=== PATIENT | female | born 1985 | race Caucasian/White ===

== ENCOUNTER → 2018-11-25 | Outpatient (CLI) | payer OTHER ==
[~2018-11-25] MED LIST: OMEP20ER PO
== END | disposition home or self-care (01) ==
LOC: LAB EV 09:36 → LAB SHORT 09:36
DX: N39.0 Urinary tract infection, site not specified (principal)
CPT/HCPCS: 87077; 87086; 87186

== ENCOUNTER 2020-02-01 22:48 | Emergency (ER) | payer OTHER ==
[~2020-02-01] VITALS: Ht 152.4 cm; Wt 72.6 kg
[2020-02-01 23:05] LABS: Source, Urine Clean Catch
[2020-02-01 23:16] LABS: Appearance, Urine Cloudy (Clear); Blood, Urine 5+ (Neg); Glucose Qualitative, Urine Neg (Neg); Ketones, Urine 2+ (Neg); Leukocyte Esterase, Urine 3+ (Neg); Nitrite, Urine Pos (Neg); Protein, Urine 3+ (Neg); Urobilinogen, Urine 2+ (Normal)
[2020-02-01] MEDS ORDERED: ESOMEPRAZOLE MA20 MG (23:18)
[2020-02-01 23:19] LABS: Bilirubin, Urine 2+ (Neg); Color, Urine Orange (P-Yellow)
[2020-02-01 23:28] LABS: Bacteria Many /hpf; Red Blood Cells, Urine TNTC /hpf (0-2); Squamous Epithelial Cells Few /hpf (Few); White Blood Cells, Urine TNTC /hpf (0-5)
[2020-02-01] MEDS ORDERED: CEPH500 PO (23:30)
[2020-02-01] MEDS ORDERED: Pyridium100 MG PO (23:30)
== END 2020-02-01 23:47 | disposition home or self-care (01) ==
LOC: ER 22:48
PROVIDERS: Physician Assistant
DX: N30.90 Cystitis, unspecified without hematuria (principal); Z79.899 Other long term (current) drug therapy
CPT/HCPCS: 81001; 87077; 87086; 87186; 99283; A9270-GY

== ENCOUNTER → 2020-02-10 | Outpatient (CLI) | payer OTHER ==
[~2020-02-10] MED LIST changes: +CEPH500 PO; +ESOMEPRAZOLE MA20 MG; +Pyridium100 MG PO
[2020-02-10 17:02] LABS: Source, Urine Clean Catch
[2020-02-10 19:16] LABS: Bilirubin, Urine Neg (Neg); Blood, Urine Neg (Neg); Glucose Qualitative, Urine Neg (Neg); Ketones, Urine Neg (Neg); Leukocyte Esterase, Urine Neg (Neg); Nitrite, Urine Neg (Neg); Protein, Urine Neg (Neg); Specific Gravity, Urine 1.005 (1.003-1.022); Urobilinogen, Urine NORM (Normal); pH, Urine 6.5 (5.0-8.0)
[2020-02-10 19:22] LABS: Appearance, Urine Clear (Clear); Color, Urine Pale Yellow (P-Yellow)
== END | disposition home or self-care (01) ==
LOC: LAB 17:00 → LAB SHORT 17:00
PROVIDERS: Internal Medicine
DX: R30.0 Dysuria (principal)
CPT/HCPCS: 81003

== ENCOUNTER 2020-03-24 00:23 | Emergency (ER) | payer OTHER ==
[~2020-03-24] VITALS: Ht 167.6 cm; Wt 68.0 kg
[2020-03-24 00:54] LABS: Source, Urine Clean Catch
[2020-03-24 01:01] LABS: Bilirubin, Urine Neg (Neg); Blood, Urine 5+ (Neg); Glucose Qualitative, Urine Neg (Neg); Ketones, Urine 1+ (Neg); Leukocyte Esterase, Urine 3+ (Neg); Nitrite, Urine Neg (Neg); Protein, Urine 2+ (Neg); Urobilinogen, Urine NORM (Normal)
[2020-03-24] MEDS ORDERED: Lexapro5 MG PO (01:01)
[2020-03-24] MEDS ORDERED: ESOM20 PO (01:01)
[2020-03-24 01:02] LABS: Appearance, Urine Hazy (Clear); Color, Urine Yellow (P-Yellow)
[2020-03-24 01:07] LABS: Bacteria Few /hpf; Red Blood Cells, Urine TNTC /hpf (0-2); Squamous Epithelial Cells Few /hpf (Few)
[2020-03-24] MEDS ORDERED: CEFP200 PO (01:31)
== END 2020-03-24 01:50 | disposition home or self-care (01) ==
LOC: ER 00:23
PROVIDERS: Emergency Medicine
DX: N39.0 Urinary tract infection, site not specified (principal); Z79.899 Other long term (current) drug therapy
CPT/HCPCS: 81001; 81025; 87077; 87086; 87186; 96372; 99283-25; A9270-GY; J1885

== ENCOUNTER → 2020-03-31 | Outpatient (CLI) | payer OTHER ==
[~2020-03-31] MED LIST changes: +CEFP200 PO; +DOCU100 PO; +ESOM20 PO; +IBUP400 PO; +LORA.5 PO; +Lexapro5 MG PO; +Norco 5-325 Ta1 EACH PO; +ZANTAC PO; +Zofran4 MG PO
[2020-03-31 18:13] LABS: BASOPHILS ABSOLUTE AUTO 0.05 K/mm3 (0.00-0.23); BASOPHILS PERCENT AUTO 1 % (0-2); EOSINOPHILS ABSOLUTE AUTO 0.19 K/mm3 (0.00-0.68); EOSINOPHILS PERCENT AUTO 3 % (0-6); Hematocrit 43.7 % (33.0-51.0); Hemoglobin 14.8 g/dL (11.5-16.0); IMMATURE GRAN ABSOLUTE AUTO 0.01 K/mm3 (0.00-0.10); IMMATURE GRAN PERCENT AUTO 0 % (0-1); LYMPHOCYTES ABSOLUTE AUTO 1.99 K/mm3 (0.84-5.20); LYMPHOCYTES PERCENT AUTO 32 % (21-46); MONOCYTES ABSOLUTE AUTO 0.33 K/mm3 (0.16-1.47); MONOCYTES PERCENT AUTO 5 % (4-13); Mean Corpuscular HGB 32.5 pg (26.0-34.0); Mean Corpuscular HGB Conc 33.9 g/dL (31.5-36.5); Mean Corpuscular Volume 96 fL (80-100); Mean Platelet Volume 9.8 fL (9.1-12.4); NEUTROPHILS ABSOLUTE AUTO 3.62 K/mm3 (1.96-9.15); NEUTROPHILS PERCENT AUTO 59 % (41-73); Platelet Count 302 K/mm3 (150-400); RDW Coefficient Variation 11.4 % (11.7-14.2); RDW Standard Deviation 39.9 fL (35.1-46.3); Red Blood Cell Count 4.55 M/mm3 (3.80-5.20); White Blood Cell Count 6.19 K/mm3 (4.00-11.30)
== END | disposition home or self-care (01) ==
LOC: LAB SHORT 11:10 → PLD 11:10
PROVIDERS: Obstetrics & Gynecology
DX: N92.0 Excessive and frequent menstruation with regular cycle (principal)
CPT/HCPCS: 84443; 85025

== ENCOUNTER 2020-06-20 05:55 | Day surgery (SDC) | payer OTHER ==
[~2020-06-20] VITALS: Ht 152.4 cm; Wt 71.0 kg
[~2020-06-20 05:55] MED LIST changes: -DOCU100 PO; -IBUP400 PO; -Norco 5-325 Ta1 EACH PO
--- NOTE | 2020-06-20 06:44 | NUR ---
Ambulatory in Day Surgery History, Chart, Medications and Allergies reviewed before start of procedure. Lungs clear T/O to Auscultation. Patient confirms NPO status and agrees with scheduled surgery. Patient reports completing Chlorhexadine shower X2 prior to admission to hospital. TEST NEGATIVE.
--- NOTE | 2020-06-20 08:01 | NUR ---
06/20/20 0801 Alejandro Romo BOOKER CATH PLACED PER DR. NARVAEZ INTRA-OP.
--- NOTE | 2020-06-20 11:07 | NUR ---
PT ARRIVED TO UNIT AT APROX 1100 FROM PACU. LAP SITES X'S 3, SMALL AMT SS DRAINAGE PRESENT AT UMBILICUS.NEIL PAD DRY. PT RATES PAIN 0/10 AT TIME OF ARRIVAL. JHONY CARTER'D PER MD ORDER. PT DENIES N/V, GIVEN CLEAR LIQUIDS AND WILL ADVANCE TOLERATED.
[2020-06-20] MEDS ORDERED: DOCU100 PO (15:49)
[2020-06-20] MEDS ORDERED: Norco 5-325 Ta1 EACH PO (15:50)
[2020-06-20] MEDS ORDERED: IBUP400 PO (15:51)
--- NOTE | 2020-06-20 16:58 | NUR ---
SHIFT SUMMARY PT POD 0 LAVH. BOOKER REMOVED UPON ARRIVAL TO UNIT, PT VOIDING, PVR 103. PAIN TOLERABLE AT 4/10, MEDICATED PER EMAR. PT TOLERATING SMALL AMTS REGULAR DIET WITH NO N/V. AMBULATED TO BATHROOM SBA. PLAN TO DC HOME TOMORROW.
--- NOTE | 2020-06-20 22:24 | NUR ---
PT STATES FEELING MUCH BETTER, DENIES ANY NAUSEA AND STATED FEELING HUNGRY. PT WAS EATING SNACK.
--- NOTE | 2020-06-20 23:39 | NUR ---
RECEIVED REPORT AND ASSUMED CARE OF PT. PT LYING QUIETLY IN BED. STATES THAT NAUSEA IS WELL CONTROLLED WHEN LYING DOWN, BUT INCREASES SIGNIFICANTLY WHEN AMBULATING. STATES PAIN IS 2/10 AT THIS TIME, WILL MEDICATE PER MAR. DENIES ANY OTHER NEEDS AT THIS TIME. WCTM.
--- NOTE | 2020-06-21 05:59 | NUR ---
SHIFT SUMMARY: KRISTIAN IS A&OX4. VSS, NO ACUTE EVENTS OVERNIGHT. SHE IS A STANDBY ASSIST, TOLERATING PO INTAKE, AND REPORTS ADEQUATE PAIN CONTROL WITH DILAUDID AND TORADOL. SHE HAS BEEN UP TO THE BATHROOM SEVEAL TIMES THIS SHIFT. SHE REPORTS SLOW URINATION, BUT IS CONTINENT. POST-VOID BLADDER SCANS HAVE REMAINED UNDER THE THRESHOLD FOR CATHETERIZATION. STERI STRIPS X 3 TO ABDOMEN C/D&I. SHE IS LYING IN BED WITH THE CALL LIGHT IN REACH. WILL REPORT TO DAY SHIFT RN.
--- NOTE | 2020-06-21 13:27 | NUR ---
DISCHARGE PT DISCHARGED HOME FROM UNIT AT APROX 1328. PT GIVEN WRITTEN AND VERBAL DISCHARGE INSTRUCTIONS AND VERBALIZED UNDERSTANDING OF THESE INSTRUCTIONS. IV REMOVED. WRITTEN RX'S GIVEN TO PT. WHEELCHAIR TO CAR.
== END 2020-06-21 13:26 | disposition home or self-care (01) ==
LOC: ORSCMMR 05:55 → ORD 07:30 → SURS 10:45 → ORSCMMR 10:45 → SURS 06-21 13:26 → ORSCMMR 06-21 13:26
PROVIDERS: Obstetrics & Gynecology
PROC: 0UT9FZZ Resection of Uterus, Via Natural or Artificial Opening With Percutaneous Endoscopic Assistance (ICD-10-PCS; principal; 2020-06-20 07:30)
PROC: 0UT7FZZ Resection of Bilateral Fallopian Tubes, Via Natural or Artificial Opening With Percutaneous Endoscopic Assistance (ICD-10-PCS; principal; 2020-06-20 07:30)
DX: N92.0 Excessive and frequent menstruation with regular cycle (principal); N80.0 Endometriosis of uterus; N73.6 Female pelvic peritoneal adhesions (postinfective); N94.6 Dysmenorrhea, unspecified; K21.9 Gastro-esophageal reflux disease without esophagitis; Z79.899 Other long term (current) drug therapy
CPT/HCPCS: 88307; A9270; J0171; J0690; J1100; J1170; J1885; J2250; J2405; J2704; J3010; J7120

== ENCOUNTER → 2022-12-08 | Outpatient (CLI) | payer OTHER ==
[~2022-12-08] MED LIST changes: +DOCU100 PO; +IBUP400 PO; +Norco 5-325 Ta1 EACH PO
== END | disposition home or self-care (01) ==
LOC: LAB SHORT 17:05 → LAB 17:05
DX: N39.0 Urinary tract infection, site not specified (principal)
CPT/HCPCS: 87086